=== PATIENT | male | born 1950 | race Caucasian/White ===

== ENCOUNTER 2020-05-14 07:46 | Inpatient (IN) | payer MEDICARE, OTHER ==
[~2020-05-14] VITALS: Ht 177.8 cm; Wt 92.1 kg
[2020-05-14 08:15] LABS: BASOPHILS % (AUTO) 1.2 % (0.0-5.0); HEMATOCRIT 48.4 % (42-54); LYMPHOCYTES % (AUTO) 28.5 % (21.0-51.0); MEAN CORPUSCULAR HEMOGLOBIN 30.4 pg (27.0-33.0); MEAN CORPUSCULAR HGB CONC 33.1 g/dL (32.0-36.0); MEAN CORPUSCULAR VOLUME 91.8 fL (79-99); MONOCYTES % (AUTO) 9.4 % (3.0-13.0); NEUTROPHILS % (AUTO) 54.5 % (40.0-77.0); PLATELET COUNT (AUTO) 293 K/uL (130-400); RED BLOOD CELL COUNT(AUTO) 5.27 MIL/uL (4.50-6.20); RED CELL DISTRIBUTION WIDTH 13.4 % (11.0-15.5); WHITE BLOOD COUNT (AUTO) 7.7 K/uL (4.8-10.8)
[2020-05-14] MEDS ORDERED: DILTIAZEM HCL 5 MG/ML 10 ML VIAL IV ONE (08:17)
[2020-05-14] MEDS ORDERED: DILTIAZEM HCL 125 MG/25 ML VIAL IV ONE (08:17)
[2020-05-14 08:37] LABS: ALBUMIN 3.9 g/dL (3.5-5.0); BILIRUBIN,TOTAL 0.3 mg/dL (0.2-1.0); CREATININE 1.2 mg/dL (0.5-1.5); POTASSIUM 3.9 mmol/L (3.5-5.1)
[2020-05-14 08:42] LABS: CREATINE KINASE, TOTAL 83 U/L (21-232); MYOGLOBIN 33 ng/mL (10-92); TROPONIN I < 0.04 ng/mL (0.00-0.06)
[2020-05-14] MEDS ORDERED: ENOXAPARIN SODIUM 100 MG/1 ML SQ ONE (09:34)
[2020-05-14] MEDS ORDERED: ACETAMINOPHEN 325 MG TAB PO PRN ×2 (11:15)
[2020-05-14] MEDS ORDERED: PHARMACY COMMUNICATION MISC SCH (11:15)
[2020-05-14] MEDS: DILTIAZEM HCL 60 MG TABLET PO SCH ×2 (11:15→19:15)
[2020-05-14] MEDS ORDERED: ONDANSETRON HCL 4 MG/2 ML VIAL IVP PRN (11:15)
[2020-05-14] MEDS: INSULIN HUMULIN R 100 UNIT/ML 3ML SQ SCH ×3 (11:30→21:00)
[2020-05-14] MEDS ORDERED: GLUCAGON 1MG KIT 1 MG ML IM PRN (11:30)
[2020-05-14] MEDS ORDERED: DEXTROSE 50%-WATER 50 ML DISP.SYRIN IV PRN (11:30)
[2020-05-14] MEDS ORDERED: METOPROLOL TARTRATE 25 MG TAB ONE ×2 (11:55→21:32)
[2020-05-14] MEDS ORDERED: INSULIN HUMULIN R 100 UNIT/ML 3ML ONE (12:08)
[2020-05-14 12:40] LABS: CHOLESTEROL 215 mg/dL (<200); HDL CHOLESTEROL 50 mg/dL (29-71); LDL DIRECT 130 mg/dL (0-99); TRIGLYCERIDES 197 mg/dL (30-200)
[2020-05-14 12:42] LABS: HEMOGLOBIN A1C 8.6 % (4.0-6.0)
[2020-05-14] MEDS ORDERED: DILTIAZEM 125MG+100 ML NS 125 ML IV SCH (13:00)
[2020-05-14] MEDS: METOPROLOL TARTRATE 25 MG TAB PO SCH (21:00)
[2020-05-14] MEDS: PANTOPRAZOLE SODIUM 40 MG TABLET.DR PO SCH (21:00)
[2020-05-14] MEDS ORDERED: DILTIAZEM HCL 60 MG TABLET ONE (21:31)
[2020-05-14] MEDS ORDERED: PANTOPRAZOLE SODIUM 40 MG TABLET.DR ONE (21:32)
--- NOTE | 2020-05-14 23:33 | NUR ---
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
[2020-05-14] MEDS ORDERED: METF-446 PO (23:48)
[2020-05-14] MEDS ORDERED: LISI40TA4 PO (23:48)
[2020-05-14] MEDS ORDERED: GELA650C4 PO (23:48)
[2020-05-15] VITALS (8 sets, daily range): BP systolic 154–193; BP diastolic 72–98
[2020-05-15] MEDS ORDERED: ZOLPIDEM TARTRATE 5 MG TAB PO PRN (00:15)
[2020-05-15] MEDS: DILTIAZEM HCL 60 MG TABLET PO SCH ×4 (05:03→20:29)
[2020-05-15 06:08] LABS: EOSINOPHILS % (AUTO) 3.7 % (0.0-8.0); HEMATOCRIT 46.9 % (42-54); LYMPHOCYTES % (AUTO) 24.2 % (21.0-51.0); MEAN CORPUSCULAR HEMOGLOBIN 30.4 pg (27.0-33.0); MEAN CORPUSCULAR HGB CONC 32.6 g/dL (32.0-36.0); MEAN CORPUSCULAR VOLUME 93.2 fL (79-99); MONOCYTES % (AUTO) 8.6 % (3.0-13.0); NEUTROPHILS % (AUTO) 62.2 % (40.0-77.0); PLATELET COUNT (AUTO) 295 K/uL (130-400); RED BLOOD CELL COUNT(AUTO) 5.03 MIL/uL (4.50-6.20); RED CELL DISTRIBUTION WIDTH 13.7 % (11.0-15.5); WHITE BLOOD COUNT (AUTO) 9.4 K/uL (4.8-10.8)
[2020-05-15 06:36] LABS: ALBUMIN 3.6 g/dL (3.5-5.0); BILIRUBIN,TOTAL 0.8 mg/dL (0.2-1.0); CREATININE 0.9 mg/dL (0.5-1.5); TOTAL PROTEIN, SERUM 6.5 g/dL (6.0-8.3)
[2020-05-15] MEDS: INSULIN HUMULIN R 100 UNIT/ML 3ML SQ SCH ×4 (06:59→21:14)
[2020-05-15] MEDS: METOPROLOL TARTRATE 25 MG TAB PO SCH ×2 (08:41→21:00)
[2020-05-15] MEDS: PANTOPRAZOLE SODIUM 40 MG TABLET.DR PO SCH ×2 (08:41→20:28)
[2020-05-15] MEDS ORDERED: ENOXAPARIN SODIUM 40 MG/0.4 ML SYRINGE SQ SCH (09:00)
[2020-05-15] MEDS: RIVAROXABAN 20 MG TABLET PO SCH (11:55)
[2020-05-15] MEDS: LISINOPRIL 40 MG TABLET PO SCH (11:59)
[2020-05-15] MEDS ORDERED: LORAZEPAM 1 MG TABLET PO ONE (15:15)
[2020-05-15] MEDS ORDERED: LABETALOL 20 MG/4 ML DISP.SYRIN IV SCH (15:15)
[2020-05-15] MEDS ORDERED: METO25 PO (16:52)
[2020-05-15] MEDS ORDERED: RIVA20TA PO (16:52)
[2020-05-15] MEDS ORDERED: DILT60TA3 PO (16:52)
--- NOTE | 2020-05-15 17:00 | NUR ---
DCP CM spoke to pt discussed dc plans. Pt is independent prior to admission, lives at home with spouse. Denies any equipments/services. Feels safe to go back home, spouse able to assist with transportation and needs as necessary. DC plan to home once stable. CM to cont to follow up. Addendum: 05/16/20 at 1150 by CHARO HERNANDEZ LVN CM Amended: Links added.
[2020-05-15] MEDS ORDERED: METOPROLOL TARTRATE 25 MG TAB ONE (19:56)
[2020-05-15] MEDS ORDERED: ZOLPIDEM TARTRATE 5 MG TAB PO SCH (21:00)
[2020-05-16] MEDS: LABETALOL 20 MG/4 ML DISP.SYRIN IV PRN ×2 (03:57→12:24)
[2020-05-16 04:00] VITALS: BP 184/100
--- NOTE | 2020-05-16 04:10 | NUR ---
BP Pt BP elevated 184/100 in RUE. Pt medicated with Labetalol 10mg IVP as ordered PRN. Pt states he does not have any symptoms and feels fine. Instructed to call for needs, will cont to monitor
[2020-05-16 05:31] VITALS: BP 165/80
[2020-05-16] MEDS: INSULIN HUMULIN R 100 UNIT/ML 3ML SQ SCH ×4 (06:24→17:42)
[2020-05-16 07:34] VITALS: BP 167/94
[2020-05-16] MEDS: LISINOPRIL 40 MG TABLET PO SCH (09:06)
[2020-05-16] MEDS: DILTIAZEM HCL 60 MG TABLET PO SCH ×2 (09:07→14:56)
[2020-05-16] MEDS: RIVAROXABAN 20 MG TABLET PO SCH (09:07)
[2020-05-16] MEDS: METOPROLOL TARTRATE 25 MG TAB PO SCH (09:07)
[2020-05-16] MEDS: PANTOPRAZOLE SODIUM 40 MG TABLET.DR PO SCH (09:07)
[2020-05-16 11:54] VITALS: BP 193/97
[2020-05-16] MEDS ORDERED: HYDRALAZINE HCL 25 MG TABLET PO SCH (14:00)
[2020-05-16] MEDS ORDERED: METOPROLOL TARTRATE 50 MG TAB PO SCH (14:00)
[2020-05-16 15:45] VITALS: BP 181/97
[2020-05-16 16:53] VITALS: BP 168/86
[2020-05-16] MEDS ORDERED: HYDR25 PO (17:52)
--- NOTE | 2020-05-16 19:31 | NUR ---
DC PT AWAKE, ALERT, AND ORIENTED. DC HOME INSTRUCTIONS GIVEN TO PT, ACKNOWLEDGED ALL INFORMATION, ALL QUESTIONS ANSWERED. AWARE RX SENT TO PHARMACY ELECTRONICALLY.
== END 2020-05-16 19:30 | disposition home or self-care (01) | DRG 310 ==
LOC: EDH 07:46 → EDHIP 11:10 → OBSVTOIN 11:10 → 4CH 22:50
PROVIDERS: ADMIT Hospitalist; ATTEND Hospitalist
DX: I48.0 Paroxysmal atrial fibrillation (principal); I10 Essential (primary) hypertension; E11.9 Type 2 diabetes mellitus without complications; E78.5 Hyperlipidemia, unspecified; Z20.828 Contact with and (suspected) exposure to other viral communicable diseases; E66.9 Obesity, unspecified; Z79.899 Other long term (current) drug therapy; Z87.891 Personal history of nicotine dependence; Z91.14 Patient's other noncompliance with medication regimen; Z68.29 Body mass index [BMI] 29.0-29.9, adult; Z88.0 Allergy status to penicillin
CPT/HCPCS: 36415; 71045; 80053; 80061; 82550; 82948; 83036; 83874; 84443; 84484; 85025; 87426; 93005; 93306; 93356; 99291; G0378; J1650; J1815; J3490; U0003

== ENCOUNTER → 2020-07-02 | Outpatient (CLI) | payer MEDICARE ==
[~2020-07-02] MED LIST: DILT60TA3 PO; GELA650C4 PO; HYDR25 PO; LISI40TA4 PO; METF-446 PO; METO25 PO; REGADENOSON 0.4 MG/5 ML PF SYG IVP SCH; RIVA20TA PO
== END | disposition home or self-care (01) ==
LOC: SHCH 08:53
PROVIDERS: ATTEND Internal Medicine Cardiovascular Disease
DX: I48.91 Unspecified atrial fibrillation (principal); R06.00 Dyspnea, unspecified; I10 Essential (primary) hypertension
CPT/HCPCS: 78452; 93017; 96374; A9500 ×2; J2785

== ENCOUNTER → 2020-07-08 | Outpatient (CLI) | payer MEDICARE ==
[~2020-07-08] MED LIST changes: -REGADENOSON 0.4 MG/5 ML PF SYG IVP SCH
== END | disposition home or self-care (01) ==
LOC: SHCH 15:05
PROVIDERS: ATTEND Internal Medicine Cardiovascular Disease
DX: I73.9 Peripheral vascular disease, unspecified (principal); I65.22 Occlusion and stenosis of left carotid artery
CPT/HCPCS: 93880; 93925

== ENCOUNTER 2020-08-02 08:56 | Day surgery (SDC) | payer MEDICARE ==
[2020-07-31 13:44] LABS: EOSINOPHILS % (AUTO) 5.1 % (0.0-8.0); HEMATOCRIT 45.8 % (42-54); LYMPHOCYTES % (AUTO) 21.5 % (21.0-51.0); MEAN CORPUSCULAR HEMOGLOBIN 30.1 pg (27.0-33.0); MEAN CORPUSCULAR HGB CONC 32.5 g/dL (32.0-36.0); MEAN CORPUSCULAR VOLUME 92.5 fL (79-99); MONOCYTES % (AUTO) 9.3 % (3.0-13.0); NEUTROPHILS % (AUTO) 62.6 % (40.0-77.0); PLATELET COUNT (AUTO) 290 K/uL (130-400); RED BLOOD CELL COUNT(AUTO) 4.95 MIL/uL (4.50-6.20); RED CELL DISTRIBUTION WIDTH 13.4 % (11.0-15.5); WHITE BLOOD COUNT (AUTO) 7.7 K/uL (4.8-10.8)
[2020-07-31 13:56] LABS: POTASSIUM 4.1 mmol/L (3.5-5.1)
[2020-07-31 13:58] LABS: APPEARANCE,URINE Clear (CLEAR); BILIRUBIN,URINE Negative (NEGATIVE); COLOR,URINE Yellow (YELLOW); GLUCOSE, URINE (UA) >=1000 mg/dL (NEGATIVE); INR 0.89 (0.85-1.15); KETONES,URINE Negative (NEGATIVE); LEUKOCYTE ESTERASE ,URINE Negative (NEGATIVE); NITRATE,URINE Negative (NEGATIVE); OCCULT BLOOD,URINE Negative (NEGATIVE); PARTIAL THROMBOPLASTIN TIME 29.2 SEC (26.3-35.5); PROTEIN,URINE Negative (NEGATIVE); PROTHROMBIN TIME 9.7 SEC (9.6-11.6); UROBILINOGEN,URINE 0.2 mg/dL (0.2-1.0)
[2020-07-31 14:20] LABS: BACTERIA,URINE None Seen /HPF (None Seen); RBC,URINE None Seen /HPF (0-1); SQUAMOUS EPITHELIAL CELL,UR None Seen /HPF (0-2); WBC,URINE None Seen /HPF (0-1)
--- NOTE | 2020-08-01 10:39 | NUR ---
Spoke to Addison JOSÉ about patient taking his xarelto today 08/01/20 at 0500am, okay to proceed but just have patient as last case.
[~2020-08-02] VITALS: Ht 175.3 cm; Wt 98.9 kg
[2020-08-02] VITALS (13 sets, daily range): BP systolic 141–191; BP diastolic 61–83
[~2020-08-02 08:56] MED LIST changes: +ACETAMINOPHEN 325 MG TAB PO PRN; +ASCO1TAB46 PO; +ASCO500C18 PO; +DAPA10TA PO; +DILT360C38 PO; -DILT60TA3 PO; -GELA650C4 PO; +HYDR-4064 PO; +HYDR-4154 PO; +HYDR12.54 PO; -HYDR25 PO; +SODIUM CHLORIDE 0.9% 500ML 500 ML IV SCH; +ZINC50TA15 PO; +ZOLP10TA2 PO; +vitamin D PO
--- NOTE | 2020-08-02 09:00 | NUR ---
Pt arrived to room ambulating in no apparent distress. Denies pain. Prep for C started at this time
--- NOTE | 2020-08-02 11:00 | NUR ---
HTN Isamel Pa called for continued htn. Orders recieved, pt remains in no apparent distress.
[2020-08-02] MEDS ORDERED: HYDRALAZINE HCL 20 MG/ML VIAL IV SCH (11:19)
--- NOTE | 2020-08-02 14:30 | NUR ---
Pt appears flushed , denies discomfort, or pain. Pt states feels hot, room temperature noted at 77 degrees and covered with two blankets. Blankets removed and temperature adjusted to 70 degrees
[2020-08-02] MEDS ORDERED: HEPARIN SODIUM 1000UNIT/ML 10ML VIAL ONE (14:51)
[2020-08-02] MEDS ORDERED: NITROGLYCERIN 2 MG/VIAL VIAL IV ONE (14:51)
[2020-08-02] MEDS ORDERED: IOHEXOL-350 75 ML VIAL IV ONE (14:51)
[2020-08-02] MEDS ORDERED: MEPERIDINE-PF 25 MG/ML SYG ONE ×3 (14:51→15:24)
[2020-08-02] MEDS ORDERED: MIDAZOLAM HCL 1 MG/ML 2ML VIAL ONE ×3 (14:52→15:24)
[2020-08-02] MEDS ORDERED: LIDOCAINE HCL 2% 20ML ONE (14:52)
[2020-08-02] MEDS ORDERED: IOHEXOL-350 50ML VIAL IV ONE ×2 (14:52→15:42)
--- NOTE | 2020-08-02 15:00 | NUR ---
Pt to dental laboratory technician at this time.
[2020-08-02] MEDS ORDERED: NICARDIPINE HCL 25 MG/10 ML ML IV ONE (15:14)
[2020-08-02] MEDS ORDERED: SODIUM BICARB 50MEQ 50ML VIAL 50 ML ONE (15:14)
[2020-08-02] MEDS ORDERED: DEXTROSE 50%-WATER 50 ML DISP.SYRIN IV PRN (16:15)
[2020-08-02] MEDS ORDERED: SODIUM CHLORIDE 0.9% 1000ML 1,000 ML IV SCH (16:15)
[2020-08-02] MEDS ORDERED: GLUCAGON 1MG KIT 1 MG ML IM PRN (16:15)
[2020-08-02] MEDS ORDERED: INSULIN HUMULIN R 100 UNIT/ML 3ML SQ SCH (16:30)
--- NOTE | 2020-08-02 16:45 | NUR ---
PT BACK FROM ENGINEER TECHNICIAN TR BAND IN PLACE NO BLEEDING OR HEMATOMA NOTED.
--- NOTE | 2020-08-02 19:10 | NUR ---
TR BAND REMOVAL BAND REMOVED DRIED BLOOD CLEANSED , HEMOSTASIS ACHIEVED. 4X4 FOLDED GAUZE TO SITE , WRAPPED WITH KERLIX AND SECURED WITH COBAN. CAPILLARY REFILL INTACT LESS THAN 2 SECONDS, PT INSTRUCTED ON NEED TO HOLD PRESSURE FOR ANY BLEEDING NOTED WHILE AT HOME.
--- NOTE | 2020-08-02 19:30 | NUR ---
DAY PT DC PATIENT TAKEN TO ER MAIN LOBBY IN WHEELCHAIR . DRESSING REMAINS DRY AND INTACT.
[2020-08-02 22:32] LABS: CHOLESTEROL 208 mg/dL (<200); HDL CHOLESTEROL 50 mg/dL (29-71); LDL DIRECT 124 mg/dL (0-99); TRIGLYCERIDES 236 mg/dL (30-200)
== END 2020-08-02 19:30 | disposition home or self-care (01) ==
LOC: DAH 08:56
PROVIDERS: ATTEND Internal Medicine Cardiovascular Disease
DX: I25.118 Atherosclerotic heart disease of native coronary artery with other forms of angina pectoris (principal); I48.0 Paroxysmal atrial fibrillation; I10 Essential (primary) hypertension; E78.5 Hyperlipidemia, unspecified; E11.9 Type 2 diabetes mellitus without complications; Z88.0 Allergy status to penicillin; Z79.01 Long term (current) use of anticoagulants; Z79.899 Other long term (current) drug therapy
CPT/HCPCS: 36415; 71045; 80048; 80061; 81001; 82948; 85025; 85610; 85730; 93005; 93458; A4215; A4216; A4221; A4222; A4223 ×3; A4606; A4663; C1769; C1894 ×2; J0360; J1644 ×2; J2175 ×3; J2250 ×3; J3490 ×4; Q9967 ×2; 99156; 99157

== ENCOUNTER → 2020-11-18 | Outpatient (CLI) | payer MEDICARE ==
[~2020-11-18] MED LIST changes: -ACETAMINOPHEN 325 MG TAB PO PRN; -LISI40TA4 PO; +LISI40TA9 PO; -SODIUM CHLORIDE 0.9% 500ML 500 ML IV SCH
== END | disposition home or self-care (01) ==
LOC: SHCH 14:23
PROVIDERS: ATTEND Internal Medicine Cardiovascular Disease
DX: I35.8 Other nonrheumatic aortic valve disorders (principal); I25.5 Ischemic cardiomyopathy
CPT/HCPCS: 93306; 93356

== ENCOUNTER → 2022-04-27 | Outpatient (CLI) | payer OTHER | END | disposition home or self-care (01) | LOC: SHCH 07:36 | PROVIDERS: ATTEND Internal Medicine Cardiovascular Disease | DX: I10 Essential (primary) hypertension (principal) | CPT/HCPCS: 93975 ==

== ENCOUNTER → 2023-05-05 | Outpatient (CLI) | payer OTHER ==
[2023-05-05 16:53] LABS: POTASSIUM 3.9 mmol/L (3.5-5.1)
== END | disposition home or self-care (01) ==
LOC: LAB 14:49
PROVIDERS: ATTEND Internal Medicine Cardiovascular Disease
DX: I10 Essential (primary) hypertension (principal)
CPT/HCPCS: 36415; 80048

== ENCOUNTER → 2023-05-17 | Outpatient (CLI) | payer OTHER ==
[~2023-05-17] MED LIST changes: +IOHEXOL 350 MG/ML 100ML INFUS..BTL IV ONE
== END | disposition home or self-care (01) ==
LOC: RAH 09:49
PROVIDERS: ATTEND Internal Medicine Cardiovascular Disease
DX: Q27.1 Congenital renal artery stenosis (principal); I15.0 Renovascular hypertension; I10 Essential (primary) hypertension
CPT/HCPCS: 74175; Q9967

== ENCOUNTER 2023-09-10 06:17 | Day surgery (SDC) | payer OTHER ==
[2023-09-07 09:17] LABS: BASOPHILS # (AUTO) 0.05 K/uL (0.00-0.20); BASOPHILS % (AUTO) 0.8 % (0.0-5.0); EOSINOPHILS # (AUTO) 0.16 K/uL (0.00-0.70); EOSINOPHILS % (AUTO) 2.6 % (0.0-8.0); HEMATOCRIT 49.1 % (42-54); IMMATURE GRANULOCYTE ABSOLUTE 0.03 K/uL (0-1); LYMPHOCYTES # (AUTO) 1.3 K/uL (1.0-4.8); LYMPHOCYTES % (AUTO) 20.3 % (21.0-51.0); MEAN CORPUSCULAR HEMOGLOBIN 30.1 pg (27.0-33.0); MEAN CORPUSCULAR VOLUME 94.2 fL (79-99); MONOCYTES # (AUTO) 0.6 K/uL (0.1-1.0); MONOCYTES % (AUTO) 9.6 % (3.0-13.0); NEUTROPHILS # (AUTO) 4.1 K/uL (1.8-7.7); NEUTROPHILS % (AUTO) 66.2 % (40.0-77.0); PLATELET COUNT (AUTO) 261 K/uL (130-400); RED BLOOD CELL COUNT(AUTO) 5.21 MIL/uL (4.50-6.20); RED CELL DISTRIBUTION WIDTH 14.6 % (11.0-15.5); WHITE BLOOD COUNT (AUTO) 6.3 K/uL (4.8-10.8)
[2023-09-07 09:18] VITALS: BP 154/80; PULSE 81; RESP 18
[2023-09-07 09:25] LABS: CREATININE 0.9 mg/dL (0.5-1.5); POTASSIUM 4.2 mmol/L (3.5-5.1)
[2023-09-07 09:27] LABS: INR 1.08 (0.85-1.15); PROTHROMBIN TIME 12.5 SEC (9.6-11.6)
[2023-09-07 09:42] LABS: B-TYPE NATRIURETIC PEPTIDE 18 pg/mL (0-100)
[2023-09-07 10:06] LABS: APPEARANCE,URINE CLEAR (CLEAR); BILIRUBIN,URINE NEGATIVE (NEGATIVE); COLOR,URINE LIGHT-YELLOW (YELLOW); GLUCOSE, URINE (UA) >=1000 mg/dL (NEGATIVE); KETONES,URINE NEGATIVE (NEGATIVE); LEUKOCYTE ESTERASE ,URINE NEGATIVE Leu/uL (NEGATIVE); NITRATE,URINE NEGATIVE (NEGATIVE); OCCULT BLOOD,URINE NEGATIVE (NEGATIVE); PH,URINE 5.5 (5.0-8.0); PROTEIN,URINE NEGATIVE (NEGATIVE); UROBILINOGEN,URINE 0.2 mg/dL (0.2-1.0)
[2023-09-07 10:36] LABS: ADD UA MICROSCOPIC YES
[2023-09-07 10:39] LABS: RBC,URINE 0-1 /HPF (0-1); WBC,URINE 0-1 /HPF (0-1)
[2023-09-10] VITALS (12 sets, daily range): BP systolic 111–146; BP diastolic 68–81; PULSE 65–80; RESP 14–18
[~2023-09-10] VITALS: Ht 175.3 cm; Wt 84.5 kg
[~2023-09-10 06:17] MED LIST changes: +AEC81 PO; +AMLO-258 PO; -ASCO1TAB46 PO; -ASCO500C18 PO; +ASHWAGANDHA PO; +CHOL100046 PO; +CHOL500045 PO; +CLON1PAT13 TD; +CLON1TAB12 PO; -DILT360C38 PO; -HYDR12.54 PO; -IOHEXOL 350 MG/ML 100ML INFUS..BTL IV ONE; -METO25 PO; +METO50TA18 PO; +OZEMPIC SQ; +PIOG15TA66 PO; +ROSU20TA73 PO; +SPECTRAVITE PO; +VITA100C27 PO; -ZINC50TA15 PO; +[UNRECOGNIZED DRUG - CODE] TD; -vitamin D PO
[2023-09-10] MEDS ORDERED: SODIUM BICARB 50MEQ 50ML VIAL 50 ML ONE (08:39)
[2023-09-10] MEDS ORDERED: LIDOCAINE PF 100MG/5ML (2%) SYRINGE 5ML ONE (08:39)
[2023-09-10] MEDS ORDERED: MEPERIDINE-PF 25 MG/ML SYG ONE ×3 (08:40→09:27)
[2023-09-10] MEDS ORDERED: NITROGLYCERIN 50MG VIAL ONE (08:40)
[2023-09-10] MEDS ORDERED: HEPARIN 10,000 UNIT/10ML (1,000 UNIT/ML) VIAL ONE (08:40)
[2023-09-10] MEDS ORDERED: MIDAZOLAM HCL 1 MG/ML 2ML VIAL ONE ×3 (08:40→09:28)
[2023-09-10] MEDS ORDERED: IODIXANOL 320 MG/ML 100 ML VIAL ONE (08:40)
[2023-09-10] MEDS ORDERED: GLUCAGON 1MG KIT 1 MG ML IM PRN (10:00)
[2023-09-10] MEDS ORDERED: 0.9%NACL 1000ML 1,000 ML IV SCH (10:00)
[2023-09-10] MEDS ORDERED: DEXTROSE 50%-WATER 50 ML DISP.SYRIN IV PRN (10:00)
[2023-09-10] MEDS ORDERED: INSULIN HUMULIN R 100 UNIT/ML 3ML SQ SCH (11:30)
== END 2023-09-10 14:10 | disposition home or self-care (01) ==
LOC: DAH 06:17
PROVIDERS: ATTEND Internal Medicine Cardiovascular Disease
DX: I70.1 Atherosclerosis of renal artery (principal); I10 Essential (primary) hypertension; E78.5 Hyperlipidemia, unspecified; E11.9 Type 2 diabetes mellitus without complications; I48.0 Paroxysmal atrial fibrillation; E66.9 Obesity, unspecified; Z68.27 Body mass index [BMI] 27.0-27.9, adult; Z88.0 Allergy status to penicillin; Z79.82 Long term (current) use of aspirin; Z79.84 Long term (current) use of oral hypoglycemic drugs; Z79.01 Long term (current) use of anticoagulants; Z79.899 Other long term (current) drug therapy; Z83.3 Family history of diabetes mellitus; Z82.49 Family history of ischemic heart disease and other diseases of the circulatory system; Z87.891 Personal history of nicotine dependence; Z79.891 Long term (current) use of opiate analgesic
CPT/HCPCS: 80048; 83880; 85025; 85610; 85730; 81001; 36415 ×2; 71045; 93005; 36252; 85347; 82948 ×2; A4223 ×3; C1769; C1887; C1894; J3490 ×2; J2001; J1644 ×2; J2250 ×2; J2175 ×2; Q9967; A4215; A4222; A4221; A4663; A4216; A4606; 99156; 99157

== ENCOUNTER → 2024-02-08 | Outpatient (CLI) | payer OTHER ==
[~2024-02-08] MED LIST changes: -HYDR-4154 PO; +HYDR50TA37 PO
[2024-02-08] MEDS: REGADENOSON 0.4 MG/5 ML PF SYG IVP ONE (15:14)
== END | disposition home or self-care (01) ==
LOC: SHCH 08:06
PROVIDERS: ATTEND Internal Medicine Cardiovascular Disease
DX: I25.10 Atherosclerotic heart disease of native coronary artery without angina pectoris (principal)
CPT/HCPCS: 78452; 96374; 93017; J2785; A9500 ×2